=== PATIENT | female | born 1975 | race Caucasian/White ===

== ENCOUNTER 2018-01-08 13:33 | Emergency (ER) | payer BC ==
[2018-01-08 14:47] LABS: Potassium 3.7 mmol/L (3.5-5.1)
[2018-01-08 14:57] LABS: Urine Blood 1+ (NEG); Urine Glucose NEGATIVE (NEG); Urine Protein NEGATIVE (NEG); Urine Specific Gravity <1.005 (1.005-1.030)
[2018-01-08 14:59] LABS: Absolute Lymphocytes (CBC) 1.3 K/uL (0.7-4.9); Absolute Monocytes 0.8 K/uL (0.1-1.3); Absolute Neutrophil 11.3 K/uL (1.8-8.0); Basophils % 0.3 % (0-1.3); Eosinophils % 1.9 % (0-4.4); Hematocrit 40.5 % (36.0-45.0); Lymphocytes % 9.6 % (15.3-44.8); MCH 31.7 pg (27.0-35.0); MCV 92.6 fL (80-100); MPV 8.2 fL (7.6-11.3); Monocytes % 5.8 % (3.3-12.3); RBC Red Blood Cell Count 4.38 M/uL (3.86-4.86)
[2018-01-08 15:26] LABS: Urine Amorphous Sediment TRACE /HPF (NONE SEEN); Urine Bacteria <20 /HPF (<20); Urine Culture Reflex Order NOT NEEDED; Urine RBC <5 /HPF (NONE SEEN)
--- NOTE | 2018-01-08 15:36 | RAD REPORT ---
EXAM DESCRIPTION: US - Transvaginal OB - 01/08/2018 3:14 pm CLINICAL HISTORY: VAGINAL BLEEDING COMPARISON: No comparisons FINDINGS: No gestational sac is seen within the uterus. The uterus measures 7.7 x 4.8 x 4.5 cm Endom etrial stripe is mildly thickened measuring 9 mm. No adnexal masses seen. No significant free fluid. A hemorrhagic right ovarian cyst is noted. The right ovary measures 5.8 x 3.3 x 2.9 cm. The left ovar y measures 3.1 x 1.7 x 1.5 cm. Normal Doppler blood flow was demonstrated to both ovaries. IMPRESSION: No IUP is seen within the endometrium. In the setting of an elevated HCG level, this wou ld indicate of unknown location. Short interval follow-up serial HCG levels and followup so nography in 7-10 days would be recommended.
--- NOTE | 2018-01-08 15:39 | ER ---
Nurse's Notes [facility] Name: Dang David Age: 42 yrs Sex: Female : 1975 Arrival Date: 01/08/2018 Time: 13:37 Bed 8 Private MD: Jaja Nichole K Diagnosis: Less than 8 weeks gestation of Presentation: 01/08 13:52 Presenting complaint: Patient states: just found out this morning, , sg office. pt reports she has had some suprapubic pain and crampy with vaginal bleeding that is light flow, and small clots. Transition of care: patient was not received from another setting of care. Onset of symptoms was January 08, 2018. Risk Assessment: Do you want to hurt yourself or someone else? Patient reports no desire to harm self or others. Care prior to arrival: None. 13:52 Method Of Arrival: Ambulatory sg 13:52 Acuity: JERAD 3 sg 14:00 Initial Sepsis Screen: Does the patient meet any 2 criteria? No. Patient's initial ss sepsis screen is negative. Does the patient have a suspected source of infection? No. Patient's initial sepsis screen is negative. 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 - Social history:: Smoking status: Patient/guardian denies using tobacco. - Ebola Screening: : Patient negative for fever greater than or equal to 101.5 degrees Fahrenheit, and additional compatible Ebola Virus Disease symptoms Patient denies exposure to infectious person Patient denies travel to an Ebola-affected area in the 21 days before illness onset No symptoms or risks identified at this time. Screenin:58 Abuse screen: Denies threats or abuse. Denies injuries from another. Nutritional ss screening: No deficits noted. Tuberculosis screening: Never had TB. Fall Risk None identified. Assessment: 13:58 General: Appears in no apparent distress. comfortable, Behavior is calm, cooperative, ss Denies fever, feeling ill, fatigue, chills. Pain: Denies pain. Neuro: Level of Consciousness is awake, alert, obeys commands, Oriented to person, place, time, situation, Speech is normal. Cardiovascular: Heart tones S1 S2 present Capillary refill < 3 seconds is brisk in bilateral fingers Patient's skin is warm and dry. Respiratory: Airway is patent Respiratory effort is even, unlabored, Respiratory pattern is regular, symmetrical, Breath sounds are clear bilaterally. Denies cough, shortness of breath pain with respiration, pain with cough, pain with movement. GI: Abdomen is non-distended, Bowel sounds present X 4 quads. Patient currently denies diarrhea, nausea, vomiting. : Reports intermittent/ light vaginal bleeding that began 11 days ago. Patient was seen in her PCP's office where they told her she was . Patient reports that what she thought light bleeding from her urethra when she wiped turned out to be vaginal blood. EENT: Nares are clear Oral mucosa is moist. Throat is clear. Derm: Skin is intact, is healthy with good turgor, Skin is dry, Skin is pink, warm \T\ dry. normal. Musculoskeletal: Range of motion: intact in all extremities, Swelling absent. 14:40 Reassessment: Patient appears in no apparent distress at this time. Patient and/or ss family updated on plan of care and expected duration. Pain level reassessed. Patient is alert, oriented x 3, equal unlabored respirations, skin warm/dry/pink. Patient denies pain at this time. Vital Signs: 13:54 BP 153 / 89; Pulse 85; Resp 16; Temp 98.9(O); Pulse Ox 96% on R/A; Pain 0/10; ss 14:37 BP 114 / 77; Pulse 73; Resp 18; Pulse Ox 96% ; sv ED Course: 13:37 Patient arrived in ED. sb2 13:37 Jaja Nichole MD is Private Physician. sb2 13:51 [facility]-C [facility] kb 13:51 Adams Galeas MD is Attending Physician. kb 13:53 Triage completed. sg 13:53 Arm band placed on. sg 13:57 Aleja Heath, FERMÍN is Primary Nurse. ss 13:58 Patient has correct armband on for positive identification. Bed in low position. Call ss light in reach. 14:20 Initial lab(s) drawn, by me, sent to lab. Inserted saline lock: 20 gauge in left sv antecubital area, using aseptic technique. Blood collected. Flushed left antecubital with 5 ml normal saline. 15:14 Ultrasound completed. aa4 15:14 US Transvaginal Ob In Process Unspecified. EDMS 15:46 No provider procedures requiring assistance completed. IV discontinued, intact, ss bleeding controlled, No redness/swelling at site. Pressure dressing applied. Administered Medications: No medications were administered Outcome: 15:39 Discharge ordered by . kb 15:46 Discharged to home ambulatory. ss 15:46 Condition: good 15:46 Discharge instructions given to patient, Instructed on discharge instructions, follow up and referral plans. Demonstrated understanding of instructions, follow-up care. 15:47 Patient left the ED. ss Signatures: Dispatcher [employer] EDAK Radha Antonio, EVENING SITTER-C EVENING SITTER-Mabel Christensen, RN RN Haja Goss RN Mandi Graham aa4 Aleja Heath RN RN Emily Alvarez sb2
--- NOTE | 2018-01-08 15:39 | EDPHYS ---
Physician Documentation [facility] Name: Dang David Age: 42 yrs Sex: Female : 1975 Arrival Date: 01/08/2018 Time: 13:37 Bed 8 Private MD: Jaja Nichole K ED Physician Adams Galeas HPI: 01/08 14:08 This 42 yrs old Female presents to ER via Ambulatory with complaints of kb Vaginal Bleeding, + Preg <12wks. 14:08 The patient presents to the emergency department with vaginal bleeding, described as kb spotting. course: care: none, Leakage of Fluid: none appreciated, Ultrasound: the patient has not had an ultrasound, Risk/complications: advanced maternal age. Previous pregnancies: in previous pregnancies patient has had. Associated signs and symptoms: Pertinent positives: vaginal bleeding, Pertinent negatives: abdominal pain, vaginal discharge. The patient has not experienced similar symptoms in the past. The patient has been recently seen by a physician: the patient's primary care provider. Pt states she has noticed bleeding when she urinates for the past 11 days, thought it was a UTI so she went to her PCP. They tested her urine and it was positive for so she was sent to ER for evaluation. Pt states the bleeding is not constant.. 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 - Social history:: Smoking status: Patient/guardian denies using tobacco. - Ebola Screening: : Patient negative for fever greater than or equal to 101.5 degrees Fahrenheit, and additional compatible Ebola Virus Disease symptoms Patient denies exposure to infectious person Patient denies travel to an Ebola-affected area in the 21 days before illness onset No symptoms or risks identified at this time. ROS: 14:08 Constitutional: Negative for fever, chills, and weight loss, Cardiovascular: Negative kb for chest pain, palpitations, and edema, Respiratory: Negative for shortness of breath, cough, wheezing, and pleuritic chest pain, Abdomen/GI: Negative for abdominal pain, nausea, vomiting, diarrhea, and constipation, Back: Negative for injury and pain, MS/Extremity: Negative for injury and deformity, Skin: Negative for injury, rash, and discoloration, Neuro: Negative for headache, weakness, numbness, tingling, and seizure. 14:08 : Positive for vaginal bleeding. Exam: 14:08 Constitutional: This is a well developed, well nourished patient who is awake, alert, kb and in no acute distress. Head/Face: Normocephalic, atraumatic. Chest/axilla: Normal chest wall appearance and motion. Nontender with no deformity. No lesions are appreciated. Cardiovascular: Regular rate and rhythm with a normal S1 and S2. No gallops, murmurs, or rubs. Normal PMI, no JVD. No pulse deficits. Respiratory: Lungs have equal breath sounds bilaterally, clear to auscultation and percussion. No rales, rhonchi or wheezes noted. No increased work of breathing, no retractions or nasal flaring. Abdomen/GI: Soft, non-tender, with normal bowel sounds. No distension or tympany. No guarding or rebound. No evidence of tenderness throughout. Skin: Warm, dry with normal turgor. Normal color with no rashes, no lesions, and no evidence of cellulitis. MS/ Extremity: Pulses equal, no cyanosis. Neurovascular intact. Full, normal range of motion. Neuro: Awake and alert, GCS 15, oriented to person, place, time, and situation. Cranial nerves II-XII grossly intact. Motor strength 5/5 in all extremities. Sensory grossly intact. Cerebellar exam normal. Normal gait. Vital Signs: 13:54 BP 153 / 89; Pulse 85; Resp 16; Temp 98.9(O); Pulse Ox 96% on R/A; Pain 0/10; ss 14:37 BP 114 / 77; Pulse 73; Resp 18; Pulse Ox 96% ; sv MDM: 13:51 Patient medically screened. kb 14:08 Data reviewed: vital signs, nurses notes. Data interpreted: Pulse oximetry: on room air kb is 96 %. Interpretation: normal. 15:37 Counseling: I had a detailed discussion with the patient and/or guardian regarding: the kb historical points, exam findings, and any diagnostic results supporting the discharge/admit diagnosis, lab results, radiology results, the need for outpatient follow up, an OB/Gyne specialist, to return to the emergency department if symptoms worsen or persist or if there are any questions or concerns that arise at home. ED course: Pt does not have any abd pain or tenderness. Ectopic not suspected. Pt is to follow up with Dr Harkins. Will return for repeat Hcg in 48 hours if unable to get into Dr Harkins. Will return for abdominal pain, increased bleeding or any other concerns. . 01/08 13:58 Order name: Quantitative Hcg; Complete Time: 14:48 kb 01/08 13:58 Order name: Abo/rh Typing; Complete Time: 14:58 kb 01/08 13:58 Order name: Basic Metabolic Panel; Complete Time: 14:48 kb 01/08 13:58 Order name: CBC with Diff; Complete Time: 15:12 kb 01/08 14:06 Order name: Urine Microscopic Only; Complete Time: 15:28 kb 01/08 14:06 Order name: Urine Dipstick--Ancillary (enter results); Complete Time: 14:58 bd 01/08 13:58 Order name: Urine Test (obtain specimen); Complete Time: 14:51 kb 01/08 13:58 Order name: IV Saline Lock; Complete Time: 14:51 kb 01/08 13:58 Order name: Labs collected and sent; Complete Time: 14:51 kb 01/08 13:58 Order name: NPO; Complete Time: 14:51 kb 01/08 13:58 Order name: Urine Dipstick-Ancillary (obtain specimen); Complete Time: 14:51 kb 01/08 14:49 Order name: US Transvaginal Ob; Complete Time: 15:37 kb Administered Medications: No medications were administered Disposition: 01/09 07:23 Co-signature as Attending Physician, Adams Galeas MD I agree with the assessment and darius plan of care. Disposition: 01/08/18 15:39 Discharged to Home. Impression: Less than 8 weeks gestation of . - Condition is Stable. - Discharge Instructions: First Trimester of , [id number]. - Medication Reconciliation Form, Thank You Letter, Antibiotic Education, Prescription Opioid Use, Work release form form. - Follow up: Emergency Department; When: As needed; Reason: Worsening of condition. Follow up: Private Physician; When: 2 - 3 days; Reason: Recheck today's complaints, Continuance of care, Re-evaluation by your physician. Signatures: Dispatcher [employer] EDRadha Ray, AUTO FORMER MACHINE OPERATOR-C AUTO FORMER MACHINE OPERATOR-Haja Urena, RN RN Adams Marshall MD MD cha Smirch, Shelby, RN RN ss Corrections: (The following items were deleted from the chart) 01/08 15:39 15:37 ED course: Pt does not have any abd pain or tenderness. Ectopic not suspected. Pt kb is to follow up with Dr Harkins. Will return for repeat Hcg in 48 hours if unable to get into Dr Harkins. . kb 15:47 15:39 01/08/2018 15:39 Discharged to Home. Impression: Less than 8 weeks gestation of ss . Condition is Stable. Forms are Medication Reconciliation Form, Thank You Letter, Antibiotic Education, Prescription Opioid Use. Follow up: Emergency Department; When: As needed; Reason: Worsening of condition. Follow up: Private Physician; When: 2 - 3 days; Reason: Recheck today's complaints, Continuance of care, Re-evaluation by your physician. kb
== END 2018-01-08 15:47 | disposition home or self-care (01) ==
LOC: ER 13:33
DX: O26.891 Other specified pregnancy related conditions, first trimester (principal)
CPT/HCPCS: 36415; 76817; 80048; 81003; 81015; 84702; 85025; 86900; 86901; 99283

== ENCOUNTER 2023-08-01 10:35 | Emergency (ER) | payer BC ==
--- OUTSIDE RECORDS SUMMARY | 2023-08-01 10:38 | XMS REPORT | Continuity of Care Document ---
Author Name Unknown Address [address] [place] [address] 1 [phone] [facility] [address] [place] [address] Care Team Providers Care Capital Campaign Fundraiser Name Role Phone CHRISTIANO HERNANDEZ Attending Clinician Unavailable Encounters Start Date/Time End Date/Time Encounter Type Admission Type Attending Clinicians Care Facility Care Department Encounter ID Source 2022-09-13 14:15:00 2022-09-13 14:15:00 Outpatient CHRISTIANO HERNANDEZ [id number] [facility]
--- NOTE | 2023-08-01 11:59 | RAD REPORT ---
EXAM DESCRIPTION: CT - Abdomen Pelvis Wo Contrast - 08/01/2023 11:47 am CLINICAL HISTORY: Abdominal pain. Right flank pain COMPARISON: None TECHNIQUE: Computed axial tomography of the abdomen and pelvis was obtained. IV and oral contrast we re not requested. All CT scans are performed using dose optimization technique as appropriate and may include automated exposure control or mA/KV adjustment according to patient size. FINDINGS: The evaluation of solid organs, vessels and bowel is limited secondary to the lack of con trast administration. The liver, spleen, pancreas, adrenals and kidneys appear grossly normal. No hydronephrosis. The appendix is normal. There is no evidence of diverticulitis. No adnexal mass. Small umbilical hernia. Mild bladder distention IMPRESSION: Mild bladder distention
--- NOTE | 2023-08-01 12:00 | RAD REPORT ---
EXAM DESCRIPTION: Shanel Single View08/01/2023 11:54 am CLINICAL HISTORY: Chest pain COMPARISON: none FINDINGS: The lungs appear clear of acute infiltrate. The heart is normal size IMPRESSION: No acute abnormalities displayed
[2023-08-01 12:03] LABS: Absolute Basophils 0.1 K/uL (0-0.5); Absolute Eosinophils 0.1 K/uL (0-0.5); Absolute Lymphocytes (CBC) 1.5 K/uL (0.7-4.9); Absolute Monocytes 0.7 K/uL (0.1-1.3); Absolute Neutrophil 10.7 K/uL (1.8-8.0); Basophils % 0.7 % (0-1.3); Eosinophils % 1.1 % (0-4.4); Hematocrit 38.6 % (36.0-45.0); Hemoglobin 12.9 g/dL (12.0-15.0); Lymphocytes % 11.1 % (15.3-44.8); MCH 30.7 pg (27.0-35.0); MCHC 33.4 g/dL (32.0-36.0); MCV 91.9 fL (80-100); MPV 7.7 fL (7.6-11.3); Monocytes % 5.3 % (3.3-12.3); Neutrophils % 81.8 % (41.7-73.7); Platelets 518 thou/uL (152-406); Red Cell Distribution Width 13.4 % (12.1-15.2)
[2023-08-01 12:21] LABS: Anion Gap 8.6 mEq/L (5.0-15.0); Potassium 3.6 mEq/L (3.5-5.1); Troponin High Sensitivity 3.3 pg/mL (<58.9)
[2023-08-01 12:34] LABS: Specific Gravity 1.005 (1.005-1.030); Sqamous Epithelial <5 /HPF (None Seen); Urine Bacteria <20 /HPF (<20); Urine Bilirubin NEGATIVE (Negative); Urine Blood Negative (Negative); Urine Clarity Turbid (Clear); Urine Color Colorless (Yellow); Urine Culture Reflex Order NOT NEEDED; Urine Glucose NEGATIVE (Negative); Urine Ketones NEGATIVE (Negative); Urine Micro Reflex YN NO BILL MICROSCOPIC; Urine Nitrite NEGATIVE (Negative); Urine Protein NEGATIVE (Negative); Urine RBC <5 /HPF (None Seen); Urine Urobilinogen Normal (Normal); Urine WBC <5 /HPF (<5); Urine pH 5.5 (5.0-7.0)
--- NOTE | 2023-08-01 12:57 | ER ---
Nurse's Notes [facility] Name: Dang David Age: 48 yrs Sex: Female : 1975 Arrival Date: 08/01/2023 Time: 10:35 Bed 14 Private MD: Diagnosis: Dizziness and giddiness;Abdominal pain, Generalized Presentation: 07/31 10:53 Chief complaint: EMS states: Was at work and suddenly became dizzy, denies chest pain rs5 and SOB. Coronavirus screen: At this time, the client does not indicate any symptoms associated with coronavirus-19. Ebola Screen: No symptoms or risks identified at this time. Initial Sepsis Screen: Does the patient meet any 2 criteria? No. Patient's initial sepsis screen is negative. Does the patient have a suspected source of infection? No. Patient's initial sepsis screen is negative. Risk Assessment: Do you want to hurt yourself or someone else? Patient reports no desire to harm self or others. Onset of symptoms was August 01, 2023. 10:53 Method Of Arrival: EMS: [facility] rs5 10:53 Acuity: JERAD 3 rs5 Triage Assessment: 10:55 General: Appears in no apparent distress. comfortable, Behavior is calm, cooperative. rs5 Pain: Denies pain. Historical: - Allergies: 10:55 No Known Allergies; rs5 - PMHx: 10:55 None; rs5 - PSHx: 10:55 None; rs5 - Immunization history:: Adult Immunizations up to date. - Infectious Disease History:: Denies. - Social history:: Smoking status: Patient denies any tobacco usage or history of. Screenin:55 [facility] ED Fall Risk Assessment (Adult) History of falling in the last 3 months, rs5 including since admission No falls in past 3 months (0 pts) Confusion or Disorientation No (0 pts) Intoxicated or Sedated No (0 pts) Impaired Gait No (0 pts) Mobility Assist Device Used No (0 pt) Altered Elimination No (0 pt) Score/Fall Risk Level 0 - 2 = Low Risk Oriented to surroundings, Maintained a safe environment. Abuse screen: Denies threats or abuse. Nutritional screening: No deficits noted. Tuberculosis screening: No symptoms or risk factors identified. Assessment: 10:55 General: Appears in no apparent distress. comfortable, Behavior is calm, cooperative. rs5 Pain: Denies pain. Neuro: Level of Consciousness is awake, alert, obeys commands, Oriented to person, place, time, situation. Cardiovascular: Patient's skin is warm and dry. Rhythm is regular. Respiratory: Airway is patent Respiratory effort is even, unlabored, Respiratory pattern is regular, symmetrical. GI: Abdomen is round non-distended, Abd is soft and non tender X 4 quads. : No signs and/or symptoms were reported regarding the genitourinary system. EENT: No signs and/or symptoms were reported regarding the EENT system. Derm: Skin is intact, Skin is pink, warm \T\ dry. Musculoskeletal: Circulation, motion, and sensation intact. 11:53 Reassessment: Patient and/or family updated on plan of care and expected duration. Pain rs5 level reassessed. Patient is alert, oriented x 3, equal unlabored respirations, skin warm/dry/pink. 13:00 Reassessment: Patient and/or family updated on plan of care and expected duration. Pain rs5 level reassessed. Patient is alert, oriented x 3, equal unlabored respirations, skin warm/dry/pink. Vital Signs: 10:53 BP 157 / 94; Pulse 80; Resp 18; Pulse Ox 99% ; rs5 11:53 BP 148 / 91; Pulse 77; Resp 18; Temp 98(O); Pulse Ox 99% on R/A; rs5 13:00 BP 140 / 88; Pulse 73; Resp 18; Pulse Ox 99% on R/A; rs5 ED Course: 10:53 Patient arrived in ED. rs5 10:55 Triage completed. rs5 10:55 Patient has correct armband on for positive identification. Placed in gown. Bed in low rs5 position. Side rails up X2. 11:06 Calvin Jensen MD is Attending Physician. ec2 11:10 Thad Lynn, FERMÍN is Primary Nurse. rs5 11:11 Arm band placed on right wrist. rs5 11:15 Inserted saline lock: 24 gauge in right hand, using aseptic technique. rs5 11:46 CT Abd/Pelvis - Without Contrast In Process Unspecified. EDMS 11:52 No provider procedures requiring assistance completed. rs5 11:56 XRAY Chest (1 view) In Process Unspecified. EDMS 13:20 IV discontinued, intact, bleeding controlled, No redness/swelling at site. Pressure rs5 dressing applied. Administered Medications: No medications were administered Medication: 11:11 VIS not applicable for this client. rs5 Outcome: 12:57 Discharge ordered by . ec2 13:20 Discharged to home ambulatory, rs5 13:20 Condition: stable 13:20 Discharge instructions given to patient, family, Instructed on discharge instructions, follow up and referral plans. Demonstrated understanding of instructions, follow-up care, 13:22 Patient left the ED. rs5 Signatures: Dispatcher [employer] Thad Quiñones RN RN rs5 Calvin Jensen MD MD ec2 Corrections: (The following items were deleted from the chart) 19:18 17:01 BP 140 / 88; Pulse 73bpm; Resp 18bpm; Pulse Ox 99% RA; rs5 rs5 19:19 11:53 BP 148 / 91; Pulse 77bpm; Resp 18bpm; Pulse Ox 99% RA; rs5 rs5
--- NOTE | 2023-08-01 12:57 | EDPHYS ---
Physician Documentation [facility] Name: Dang David Age: 48 yrs Sex: Female : 1975 Arrival Date: 08/01/2023 Time: 10:35 Bed 14 Private MD: ED Physician Calvin Jensen HPI: 07/31 11:26 This 48 yrs old Female presents to ER via EMS with complaints of lightheadedness, flank ec2 pain. 11:26 Patient arrives today for evaluation of weakness, lightheadedness, right abdominal ec2 pain. Patient reports she has been having some right-sided abdominal pain ongoing for several days. Patient reports associated nausea, no vomiting. Patient reports no diarrhea symptoms. Patient reports adequate p.o. intake. Patient reports that she had some pain today. States that she felt lightheaded this morning and subsequently came to be evaluated. Denies any chest pain or difficulty breathing. Historical: - Allergies: 10:55 No Known Allergies; rs5 - PMHx: 10:55 None; rs5 - PSHx: 10:55 None; rs5 - Immunization history:: Adult Immunizations up to date. - Infectious Disease History:: Denies. - Social history:: Smoking status: Patient denies any tobacco usage or history of. ROS: 11:26 Constitutional: as per hpi ec2 Exam: 11:26 Constitutional: GEN: NAD Head: atraumatic Eyes: EOMI Ears: External ears are ec2 normal. CV: regular rate LUNGS: no respiratory distress ABD: non-distended, right-sided abdominal TTP, no guarding, not rigid, right CVA TTP. SKIN: no evidence of rashes MSK: no evidence of trauma NEURO: moves all extremities equally Vital Signs: 10:53 BP 157 / 94; Pulse 80; Resp 18; Pulse Ox 99% ; rs5 11:53 BP 148 / 91; Pulse 77; Resp 18; Temp 98(O); Pulse Ox 99% on R/A; rs5 13:00 BP 140 / 88; Pulse 73; Resp 18; Pulse Ox 99% on R/A; rs5 MDM: 11:18 Patient medically screened. ec2 11:26 ED course: Patient arrives today for right-sided abdominal pain and lightheadedness. ec2 Examination remarkable for abdominal findings as above. Obtain lab work, CT imaging. Evaluate for cholecystitis, pyelonephritis, electrolyte disturbances, anemia, arrhythmia. . 11:52 Data reviewed: vital signs. ED course: EKG independently reviewed and interpreted by ec2 me, shows normal sinus rhythm, rate of 74, no acute ST segment elevations, nonconcerning intervals.. 12:56 ED course: Metabolic profile is reassuring, CBC shows slight leukocytosis. Urine is ec2 noninfectious, troponin within normal ranges, chest x-ray shows no acute intrathoracic process. CT imaging shows mild bladder distention, no evidence of UTI on urinalysis. Will discharge home, no specific etiology for the patient's lightheadedness. Did not find any gallstones or any other acute intra-abdominal process. Will discharge home. Return precautions given for . 07/31 11:25 Order name: Basic Metabolic Panel; Complete Time: 12:56 ec2 07/31 11:25 Order name: CBC with Diff; Complete Time: 12:56 ec2 07/31 11:25 Order name: Troponin HS; Complete Time: 12:56 ec2 07/31 11:25 Order name: UAM; Complete Time: 12:56 ec2 07/31 11:25 Order name: XRAY Chest (1 view); Complete Time: 12:56 ec2 07/31 11:25 Order name: CT Abd/Pelvis - Without Contrast; Complete Time: 12:56 ec2 07/31 11:25 Order name: Cardiac monitoring; Complete Time: 11:52 ec2 07/31 11:25 Order name: EKG - Nurse/Tech; Complete Time: 11:52 ec2 07/31 11:25 Order name: IV Saline Lock; Complete Time: 11:52 ec2 07/31 11:25 Order name: Labs collected and sent; Complete Time: 11:52 ec2 07/31 11:25 Order name: O2 Per Protocol; Complete Time: 11:52 ec2 07/31 11:25 Order name: O2 Sat Monitoring; Complete Time: 11:52 ec2 Administered Medications: No medications were administered Disposition Summary: 08/01/23 12:57 Discharge Ordered Notes: Location: Home ec2 Condition: Stable ec2 Diagnosis - Dizziness and giddiness ec2 - Abdominal pain, Generalized ec2 Followup: ec2 - With: Private Physician - When: - Reason: Re-evaluation by your physician Discharge Instructions: - Discharge Summary Sheet ec2 - Abdominal Pain, Adult ec2 - Dizziness, [id number] ec2 Forms: - Work release form ec2 - Medication Reconciliation Form ec2 - Thank You Letter ec2 - Antibiotic Education ec2 - Prescription Opioid Use ec2 - Patient Portal Instructions ec2 - Leadership Thank You Letter ec2 Signatures: Dispatcher [employer] Thad Quiñones, RN RN rs5 Calvin Jensen MD MD ec2 Corrections: (The following items were deleted from the chart) 11: 11:26 BASIC METABOLIC PANEL+C.LAB.BRZ ordered. EDMS EDMS 11:26 CBC+H.LAB.BRZ ordered. EDMS EDMS 11:26 Troponin High Sensitivity+C.LAB.BRZ ordered. EDMS EDMS : 11:26 Urinalysis W/Microscopic+U.LAB.BRZ ordered. EDMS EDMS : 11:26 Chest Single View+RAD.RAD.BRZ ordered. EDMS EDMS 11:26 Abdomen Pelvis Wo Con+CT.RAD.BRZ ordered. EDMS EDMS
[2023-08-01 14:02] VITALS: BP 148/91; O2SAT 99
--- NOTE | 2023-08-02 12:37 | EKG ---
Test Date: 2023-08-01 Test Time: 11:33:28 Water System Operator: EVONNE MEASUREMENT RESULTS: Intervals: Rate: 74 AL: 158 QRSD: 76 QT: 390 QTc: 432 [place]: P: 36 AL: 158 QRS: 58 T: 48 INTERPRETIVE STATEMENTS: Normal sinus rhythm Normal ECG No previous ECG available for comparison Electronically Signed On 08-02-23 12:33:53 CDT by Ori Hill
== END 2023-08-01 13:22 | disposition home or self-care (01) ==
LOC: ER 10:35
DX: R42 Dizziness and giddiness (principal); R10.84 Generalized abdominal pain
CPT/HCPCS: 36415; 71045; 74176; 80048; 81001; 84484; 85025; 93005; 99284